=== PATIENT | male | born 2000 | race Caucasian/White ===

== ENCOUNTER 2025-02-27 10:55 | Emergency (ER) | payer OTHER, SELFPAY ==
[2025-02-27 10:57] VITALS: BP 122/88
[2025-02-27 11:24] VITALS: BMI 21.7
[2025-02-27 11:47] LABS: Hematocrit 48.3 % (39.0-52.0); Hemoglobin 16.9 g/dL (13.0-18.0); Mean Corp Hgb Conc. 35.0 g/dL (33.0-37.0); Mean Corpuscular Volume 85.3 fL (80.0-94.0); Nucleated Red Blood Cells % 0 % (-); Platelet Count 237 10^3/uL (130-400); Red Cell Dist. Width 12.2 % (11.5-14.5)
[2025-02-27 12:25] LABS: ALT (SGPT) 38 U/L (0-50); AST (SGOT) 31 U/L (17-59); Albumin 5.3 g/dl (3.5-5.0); Alkaline Phosphatase 73 U/L (38-126); Blood Urea Nitrogen 23 mg/dl (9-20); Calcium 10.4 mg/dl (8.4-10.2); Carbon Dioxide 21 mmol/L (22-30); Chloride 101 mmol/L (98-107); Estimated Creatinine Clearance 94 ml/min; Glucose 120 mg/dl (70-99); Lipase 39 U/L (23-300); Potassium 4.6 mmol/L (3.5-5.1); Sodium 136 mmol/L (135-145); Total Protein 8.5 g/dl (6.3-8.2); eGFR > 60.00
[2025-02-27] MEDS: ZOFRAN 4 MG IV ×2 (12:31→14:25)
[2025-02-27] MEDS: NSS 1000 IV ×2 (12:31→14:24)
--- NOTE | 2025-02-27 12:42 | ED.GENMED ---
History of Present Illness
General
Chief Complaint: Abdominal Symptoms
Source: patient and spouse
Exam Limitations: none
Time Seen by Provider: 02/27/25 11:10
Nursing documentation reviewed up to this point in time: agreed with
History of Present Illness
History of Present Illness:
24-year-old male [employer] in [place] visiting locally, for the holidays, acute onset of nausea vomiting diarrhea last evening few hours after having seafood salad at the dinner, apparently other people were sick at the dinner as well, no
fevers does have some abdominal cramping no blood in his vomit or diarrhea vomited 8 or 9 times had at least 10 or 11 episodes of diarrhea no foreign travel no antibiotic use
Past History
Past History
ED Past Medical History: None
ED Past Surgical History: None
Social History
Tobacco: Non-smoker
Alcohol: None
Drug: None
Personal:
Living: with family
Employment: Employed
Review of Systems
Review of Systems
All Other Systems: Not applicable
Constitutional: Reports fatigue; Denies fever
EENT: Reports no symptoms
Respiratory: Reports no symptoms
ABD/GI: Reports abdominal pain, nausea, vomiting and diarrhea; Denies bloody stools or black stools
: Reports no symptoms; Denies bleeding
Phy Exam
Physical Exam
Physical Exam:
Physical Exam
General: no apparent distress, not acutely ill
Neck: Dry lips
Heart: s1/s2 regular rate and rhythm, no murmur. equal radial pulses.
Lungs: no acute respiratory distress. clear bilaterally
Abdomen: Soft minimal diffuse tenderness
Neuro: alert and oriented. no focal neurological deficits
Skin: no rash
Psychiatric: well kept. interactive and cooperative
Extremities: no edema.
Course
Orders/Labs/Results
Orders:
Orders
02/27/25 11:26
Complete Blood Count/With Diff Urgent
Comprehensive Metabolic Panel Urgent
Lipase Urgent
02/27/25 11:43
0.9% Sodium Chloride 1000 ml [Nss] 1,000 ml IV BOLUS
Ondansetron Injectable [Zofran] 4 mg IV NOW STA
02/27/25 14:17
0.9% Sodium Chloride 1000 ml [Nss] 1,000 ml IV BOLUS
Diphenhydramine [Benadryl] 25 mg IV NOW STA
Ondansetron Injectable [Zofran] 4 mg IV NOW STA
Abnormal Lab Results
02/27/25
11:26
WBC 13.2 H 10^3/uL
(4.8-10.8)
MPV 10.5 H fL
(7.4-10.4)
Abs Immat Gran (auto) 0.1 H 10^3/uL
(0-0.05)
Absolute Neuts (auto) 12.5 H 10^3/uL
(1.4-6.5)
Absolute Lymphs (auto) 0.3 L 10^3/uL
(1.2-3.4)
Neutrophils % 94.0 H %
(42.2-75.2)
Lymphocytes % 2.0 L %
(20.5-51.1)
Carbon Dioxide 21 L mmol/L
(22-30)
BUN 23 H mg/dl
(9-20)
Glucose 120 H mg/dl
(70-99)
Calcium 10.4 H mg/dl
(8.4-10.2)
Total Protein 8.5 H g/dl
(6.3-8.2)
Albumin 5.3 H g/dl
(3.5-5.0)
02/27/25 11:26
02/27/25 11:26
Vital Signs
Initial and Last Documented VS:
Initial Vital Signs
Temp Pulse Resp BP Pulse Ox
99.0 F 116 18 122/88 97
02/27/25 10:57 02/27/25 10:57 02/27/25 10:57 02/27/25 10:57 02/27/25 10:57
Last Documented Vital Signs
Temp Pulse Resp BP Pulse Ox
99.1 F 96 16 128/82 96
02/27/25 13:08 02/27/25 13:08 02/27/25 13:08 02/27/25 13:08 02/27/25 13:08
MDM/Problems Addressed
Differential Diagnosis Includes:
Enteritis Food poisoning norovirus colitis diverticulitis less likely appendicitis
MDM/Problems Addressed:
Nausea vomiting diarrhea after eating soup
*Pulse Oximetry
SaO2: 97
Oxygen Mode of Delivery: Room air
Patient hypoxic: no
*Critical Care Note
Total Time (30-74mins, 75-104mins- exclusive of procedures): Not Applicable
Update Note
Update Note:
Update 220, patient nauseous again after some ice chips will rebolus with antiemetics and fluids abdomen is soft without guarding or rebound
ED Attending Note
-
Portions of this chart may have been created with voice recognition software.� Occasional wrong word or��sound alike� substitutions may have occurred due to the inherent limitations of voice recognition software.
Discharge Plan
Departure
Patient with high blood pressure during this ER visit?: No
Condition: Good
Discharge Problem:
Dehydration
Instructions: Diarrhea in teens and adults, Dehydration, Adult (DC), Nausea and Vomiting, Adult (DC)
Prescriptions:
New
ondansetron 4 mg tablet,disintegrating
4 mg PO Q6H PRN (Reason: nausea and vomiting) Qty: 10 0RF
loperamide [Imodium A-D] 2 mg capsule
2 mg PO QID PRN (Reason: loose stool) Qty: 20 0RF
Referrals:
UNKNOWN - PT NOT,INTERVIEWE [Family Provider]
Interventions
Interventions:
*ED COVID-19 Vaccine History Last Done: 02/27/25 10:57
*ED Influenza Vaccine History Last Done: 02/27/25 10:57
[facility] Fall Risk Assessment Tool Last Done: 02/27/25 11:12
*Risk Screen - Suicide (C-SSRS) Last Done: 02/27/25 10:57
[facility]-Jvktbr-Qqnaighpkj Assessment Last Done: 02/27/25 12:58
Discharge Date and Time
Print Language: GEORGIAN
[2025-02-27 13:08] VITALS: BP 128/82
[2025-02-27] MEDS: BENADRYL 25 MG IV (14:25)
[2025-02-27 16:00] VITALS: BP 126/80
== END 2025-02-27 16:13 | disposition home or self-care (01) ==
LOC: EMR 10:55
PROVIDERS: EMERGENCY PHYSICIAN Emergency Medicine
DX: E86.0 Dehydration (principal)
CPT/HCPCS: 99284; 96374; 96375; 96376; 80053; 83690; 85025